=== PATIENT | female | born 1950 | race Caucasian/White ===

== ENCOUNTER 2016-10-27 18:32 | Emergency (ER) | payer OTHER ==
[~2016-10-27] VITALS: Ht 167.6 cm; Wt 83.6 kg
[~2016-10-27 18:32] MED LIST: AMOXICILLIN500 M1 PO; ASPIRIN81 M2 PO; Ascorbic Acid,Ester- PO; CELEBREX200 MG PO; Coumadin,Jantoven PO; FOLIC ACID0.4 MG PO; FOLIC ACID0.8 MG PO; Feosol PO; GLUCOVANCE 21 TABLET PO; GLYBURIDE-METF1 EAC3 PO; LEVEMIR FL100 UNITS/ SC; LISINOPRIL-HCT1 EAC3 PO; MAGNESIUM 300300 MG PO; MAGNESIUM OXID400 MG PO; MEVACOR40 MG PO; Magnesium PO; NOVOLOG PE100 UNITS/ SC; NOVOLOG SC; OSTEO BI-FLEX1 EAC1 PO; Phenergan PO; SENOKOT S,PE1 TABLET PO; TYLENOL EXTRA500 MG PO; Tums PO; Tylenol Regular Stre PO; URIBEL CAPSULE1 EACH PO; VITAMIN B12-FO1 EACH PO; VITAMIN C1000 MG PO; VITAMIN D32000 UNIT PO; VITAMIN E400 UNIT PO; Vicodin,Lortab 5/500 PO; Zestoretic,Prinzide PO
[2016-10-27] MEDS ORDERED: TRAMADOL HCL50 MG PO (20:24)
[2016-10-27 20:39] VITALS: BP 128/58
== END 2016-10-27 20:40 | disposition home or self-care (01) ==
LOC: EME 18:32
PROC: 2W3SX1Z Immobilization of Right Foot using Splint (ICD-10-PCS; principal; 2016-10-27)
DX: S92.354A Nondisplaced fracture of fifth metatarsal bone, right foot, initial encounter for closed fracture (principal); W18.39XA Other fall on same level, initial encounter; Y93.41 Activity, dancing; E11.9 Type 2 diabetes mellitus without complications; Z79.4 Long term (current) use of insulin; Z79.82 Long term (current) use of aspirin
CPT/HCPCS: 73630; 99281; 99284